=== PATIENT | female | born 1960 | race Caucasian/White ===

== ENCOUNTER 2024-08-12 10:51 | Outpatient (CLI) | payer SELFPAY | END 2024-08-12 10:52 | disposition home or self-care (01) | PROVIDERS: PCP Family Medicine; Visit Provider Family Medicine | DX: E03.9 Hypothyroidism, unspecified (principal); R53.83 Other fatigue; Z13.0 Encounter for screening for diseases of the blood and blood-forming organs and certain disorders involving the immune mechanism | CPT/HCPCS: 80048; 84443; 85025 ==